=== PATIENT | female | born 1935 | race African-American/Black ===

== ENCOUNTER 2022-03-30 21:59 | Inpatient (IN) | payer MEDICARE ==
[2022-03-31] MEDS ORDERED: SODIUM CHLORIDE 0.9% 1000 ML 1,000 ML IV ONE (00:05)
[2022-03-31] MEDS ORDERED: PANTOPRAZOLE 40 MG INJ IV ONE (00:05)
[2022-03-31 00:47] LABS: Basophils % (Auto) 0.2 % (0.0-1.8); Eosinophils % (Auto) 0.4 % (0.0-4.3); Hematocrit 36.9 % (30.3-42.9); Lymphocytes # (Auto) 1.1 K/mm3 (1.2-5.4); Mean Corpuscular HGB Conc 33 % (30-34); Mean Corpuscular Volume 93 fl (79-97); Monocytes # (Auto) 0.7 K/mm3 (0.0-0.8); Monocytes % (Auto) 10.5 % (0.0-7.3); Platelet Count 188 K/mm3 (140-440); Red Blood Count 3.95 M/mm3 (3.65-5.03); Red Cell Distribution Width 13.6 % (13.2-15.2)
[2022-03-31 00:50] LABS: INR 0.83 (0.87-1.13)
--- NOTE | 2022-03-31 01:01 | XRay Report ---
CHEST 1 VIEW INDICATION / CLINICAL INFORMATION: GI Bleed. COMPARISON: None available. FINDINGS: SUPPORT DEVICES: None. HEART / MEDIASTINUM: Heart size is within normal limits. Mediastinal contour demonstrates no signific ant abnormality. LUNGS / PLEURA: Prominent hilar structures bilaterally. Faint interstitial markings noted bilaterally . Minimal blunting left costophrenic angle suggested. BONES: No significant osseous abnormality. ADDITIONAL FINDINGS: No significant additional findings. IMPRESSION: 1. No active cardiopulmonary disease. Mild prominence of the bilateral raymon may reflect technique. 2. Small left pleural effusion not excluded. Signer Name: Hansel Garcia II, MD Signed: 03/31/2022 12:57 AM Workstation Name: [id number]
[2022-03-31 01:10] LABS: Alanine Aminotransferase 19 units/L (7-56); Albumin 3.6 g/dL (3.9-5); BUN/Creatinine Ratio 36; Blood Urea Nitrogen 29 mg/dL (7-17); Calcium 8.9 mg/dL (8.4-10.2); Hemolysis Index 4
--- NOTE | 2022-03-31 03:03 | Cat Scan Report ---
CT ABDOMEN AND PELVIS WITH CONTRAST INDICATION / CLINICAL INFORMATION: pain. TECHNIQUE: Axial CT images were obtained through the abdomen and pelvis after IV contrast. All CT sc ans at this location are performed using CT dose reduction for ALARA by means of automated exposure c ontrol. COMPARISON: None available. FINDINGS: LOWER CHEST: Dependent atelectasis of the lower lobes. LIVER: No focal lesion. No acute findings. GALLBLADDER / BILE DUCTS: No significant abnormality. Biliary ducts grossly unremarkable. SPLEEN: No significant abnormality. PANCREAS: No significant abnormality. ADRENALS: No significant abnormality. KIDNEYS/URETERS: Bilateral renal cysts. The largest left renal cyst may have internal septation and m easures up to 3.5 cm. Additional calyceal cast lower pole calyceal system of the right kidney. This m easures up to 1.2 x 1.4 cm. No additional urolithiasis. STOMACH / DUODENUM / SMALL BOWEL: The stomach, duodenum, and small bowel demonstrate no significant a bnormality. No specific abnormality of the mesentery demonstrated. COLON: Diverticulosis without acute inflammation. APPENDIX: No significant abnormality. PERITONEUM: No free air or free fluid are present within the abdomen or pelvis. LYMPH NODES: No significant adenopathy. AORTA / ARTERIES: Moderate atherosclerotic calcification without acute abnormality. IVC / VEINS: No significant abnormality. URINARY BLADDER: No significant abnormality. REPRODUCTIVE ORGANS: No significant abnormality. SKELETAL SYSTEM: No acute findings. ADDITIONAL ABDOMINAL/PELVIC FINDINGS: None. IMPRESSION: 1. No imaging findings to suggest etiology of the provided symptoms. Nonacute findings as detailed. 2. Minimally complex left renal cyst. Likely benign Bosniak II renal cystic lesion(s) requiring no fo llow-up. Signer Name: Hansel Garcia II, MD Signed: 03/31/2022 2:58 AM Workstation Name: [id number]
[2022-03-31] MEDS ORDERED: ONDANSETRON 4 MG/2 ML INJ IV PRN (04:33)
[2022-03-31] MEDS ORDERED: MORPHINE 4 MG/1 ML INJ IV PRN (04:33)
[2022-03-31] MEDS ORDERED: ACETAMINOPHEN 325 MG TAB PO PRN (04:33)
[2022-03-31] MEDS ORDERED: MORPHINE 2 MG/1 ML INJ IV PRN (04:33)
--- NOTE | 2022-03-31 04:33 | Emergency Department Report ---
ED GI Bleed HPI - General Chief complaint: GI Bleed Stated complaint: BLOOD IN STOOL Time Seen by Provider: 03/30/22 23:32 Source: family, EMS Mode of arrival: Stretcher Limitations: No Limitations, Language Barrier - History of Present Illness Initial comments: blood in stool x6. not on blood thinners, no previous episodes , 6 times today , no vomitng blood no abdominal pain MD complaint: gross hematochezia -: hour(s) Improves with: none Worsens with: none Associated Symptoms: denies: denies other symptoms, abdominal pain, nausea, vomiting - Related Data Home Medications Medication Instructions Recorded Confirmed Last Taken Alendronate Sodium 70 mg PO 1XW 04/17/15 04/17/15 04/13/15 Aspirin BABY CHEW TAB 81 mg PO DAILY 04/17/15 04/17/15 04/16/15 Lisinopril 20 mg PO DAILY 04/17/15 04/17/15 04/16/15 Lovastatin 20 mg PO DAILY 04/17/15 04/17/15 04/16/15 Omeprazole 20 mg PO DAILY 04/17/15 04/17/15 04/16/15 Oxybutynin 5 mg PO DAILY 04/17/15 04/17/15 04/16/15 amLODIPine 10 mg PO DAILY 04/17/15 04/17/15 04/16/15 Allergies Allergy/AdvReac Type Severity Reaction Status Date / Time No Known Allergies Allergy Verified 04/17/15 09:43 ED Review of Systems ROS: Stated complaint: BLOOD IN STOOL Other details as noted in HPI Constitutional: denies: chills, fever Eyes: denies: eye pain, eye discharge, vision change ENT: denies: ear pain, throat pain Respiratory: denies: cough, shortness of breath, wheezing Cardiovascular: denies: chest pain, palpitations Endocrine: no symptoms reported Gastrointestinal: denies: abdominal pain, nausea, diarrhea Genitourinary: denies: urgency, dysuria, discharge Musculoskeletal: denies: back pain, joint swelling, arthralgia Skin: denies: rash, lesions Neurological: denies: headache, weakness, paresthesias Psychiatric: denies: anxiety, depression Hematological/Lymphatic: denies: easy bleeding, easy bruising ED Past Medical Hx - Past Medical History Hx Hypertension: Yes Hx GERD: Yes - Medications Home Medications: Home Medications Medication Instructions Recorded Confirmed Last Taken Type Alendronate Sodium 70 mg PO 1XW 04/17/15 04/17/15 04/13/15 History Aspirin BABY CHEW TAB 81 mg PO DAILY 04/17/15 04/17/15 04/16/15 History Lisinopril 20 mg PO DAILY 04/17/15 04/17/15 04/16/15 History Lovastatin 20 mg PO DAILY 04/17/15 04/17/15 04/16/15 History Omeprazole 20 mg PO DAILY 04/17/15 04/17/15 04/16/15 History Oxybutynin 5 mg PO DAILY 04/17/15 04/17/15 04/16/15 History amLODIPine 10 mg PO DAILY 04/17/15 04/17/15 04/16/15 History ED Physical Exam - General Limitations: Language Barrier General appearance: alert, cachectic - Head Head exam: Present: atraumatic, normocephalic - Eye Eye exam: Present: normal appearance - ENT ENT exam: Present: mucous membranes moist - Neck Neck exam: Present: normal inspection - Respiratory Respiratory exam: Present: normal lung sounds bilaterally. Absent: respiratory distress - Cardiovascular Cardiovascular Exam: Present: regular rate, normal rhythm. Absent: systolic murmur, diastolic murmur, rubs, gallop - GI/Abdominal GI/Abdominal exam: Present: soft, normal bowel sounds - Rectal Rectal exam: Present: heme (+) stool, bloody stool - Extremities Exam Extremities exam: Present: normal inspection - Back Exam Back exam: Present: normal inspection - Neurological Exam Neurological exam: Present: alert, oriented X3 - Psychiatric Psychiatric exam: Present: normal affect, normal mood - Skin Skin exam: Present: warm, dry, intact, normal color. Absent: rash ED Course Vital Signs 03/30/22 03/31/22 03/31/22 22:59 00:00 01:00 Temperature 98.5 F Pulse Rate 79 72 68 Respiratory 16 19 16 Rate Blood Pressure Blood Pressure 148/72 122/49 105/54 [Right] O2 Sat by Pulse 96 95 94 Oximetry 03/31/22 03/31/22 03/31/22 01:30 01:46 02:00 Temperature Pulse Rate 69 65 68 Respiratory 13 17 15 Rate Blood Pressure 115/43 111/51 123/60 Blood Pressure [Right] O2 Sat by Pulse 96 95 95 Oximetry 03/31/22 02:16 Temperature Pulse Rate 71 Respiratory 15 Rate Blood Pressure 146/79 Blood Pressure [Right] O2 Sat by Pulse 97 Oximetry ED Medical Decision Making - Lab Data Result diagrams: 03/31/22 00:17 03/31/22 00:17 - Radiology Data Radiology results: report reviewed, image reviewed - Medical Decision Making stable H.H , vss , bleeding noted typed and screed started on PPI, will admit for obs and gi consult Critical care attestation.: If time is entered above; I have spent that time in minutes in the direct care of this critically ill patient, excluding procedure time. ED Disposition Clinical Impression: GI bleed Disposition: ADMITTED INPATIENT Is pt being admited?: Yes Does the pt Need Aspirin: No Condition: Stable Referrals: MICHELLE TAYLOR MD [Primary Care Provider] - 3-5 Days
--- NOTE | 2022-03-31 04:42 | History and Physical Report ---
History of Present Illness Date of examination: 03/31/22 Date of admission: 03/31/2022 Chief complaint: Bloody Stool. History of present illness: 86-year-old Tajik female with known history of hypertension, GERD presenting to the emergency room today accompanied by daughter with complaints of bloody stool. She has had multiple episodes of bloody stool. She denies having any blood clots. Bloody stool was said to have started earlier today. She denies any abdominal pain, denies any diarrhea, no hematuria or dysuria, denies any dizziness, no chest pain or shortness of breath. She denies having similar episodes in the past. Patient denies using any [id number] nonsteroidal anti-inflammatory medication. However upon review of her medications, patient takes naproxen 500 mg twice a day for joint pain. Patient cannot recall ever having a colonoscopy. Review of her records shows she had EGD done in 2014 which did not reveal any significant abnormalities except for a small hiatal hernia. Work-up in the emergency room today, labs shows hemoglobin of 12 and hematocrit of 36.9. BUN of 29 creatinine of 0.8. Stool Hemoccult was grossly positive CT of the abdomen and pelvis did not reveal any acute findings. Patient is being admitted for GI bleed. He has been placed on IV fluid and Protonix drip. Past History Past Medical History: GERD, hypertension, hyperlipidemia, other (hiatal hernia) Medications and Allergies Allergies Allergy/AdvReac Type Severity Reaction Status Date / Time No Known Allergies Allergy Verified 04/17/15 09:43 Home Medications Medication Instructions Recorded Confirmed Last Taken Type Alendronate Sodium 70 mg PO 1XW 04/17/15 03/31/22 04/13/15 History Aspirin BABY CHEW TAB 81 mg PO DAILY 04/17/15 03/31/22 04/16/15 History Lisinopril 20 mg PO DAILY 04/17/15 03/31/22 04/16/15 History Lovastatin 20 mg PO DAILY 04/17/15 03/31/22 04/16/15 History Omeprazole 20 mg PO DAILY 04/17/15 03/31/22 1 Day Ago History ~03/30/22 Oxybutynin 5 mg PO DAILY 04/17/15 03/31/22 1 Day Ago History ~03/30/22 amLODIPine 2.5 mg PO DAILY 04/17/15 03/31/22 1 Day Ago History ~03/30/22 Active Meds: Active Medications Acetaminophen (Acetaminophen 325 Mg Tab) 650 mg PO Q4H PRN PRN Reason: Pain MILD(1-3)/Fever >100.5/MEDEL Sodium Chloride (Nacl 0.9% 1000 Ml) 1,000 mls @ 125 mls/hr IV DIRECT JOEL Morphine Sulfate (Morphine 2 Mg/1 Ml Inj) 2 mg IV Q4H PRN PRN Reason: Pain, Moderate (4-6) Morphine Sulfate (Morphine 4 Mg/1 Ml Inj) 4 mg IV Q4H PRN PRN Reason: Pain , Severe (7-10) Ondansetron HCl (Ondansetron 4 Mg/2 Ml Inj) 4 mg IV Q8H PRN PRN Reason: Nausea And Vomiting Sodium Chloride (Sodium Chloride 0.9% 10 Ml Flush Syringe) 10 ml IV BID JOEL Sodium Chloride (Sodium Chloride 0.9% 10 Ml Flush Syringe) 10 ml IV PRN PRN PRN Reason: LINE FLUSH Review of Systems Constitutional: no fever, no chills Ears, nose, mouth and throat: no nasal congestion, no sore throat Cardiovascular: no chest pain, no palpitations Respiratory: no cough, no shortness of breath Gastrointestinal: BRBPR, no nausea, no vomiting, no diarrhea Genitourinary Female: no pelvic pain, no flank pain, no dysuria, no hematuria Musculoskeletal: no neck pain, no low back pain Integumentary: no rash, no pruritis Neurological: no headaches, no confusion Psychiatric: no anxiety, no depression Endocrine: no polyphagia, no polydipsia, no polyuria, no nocturia Exam - Constitutional Vitals: Temp Pulse Resp BP Pulse Ox 98.5 F 71 15 146/79 97 03/30/22 22:59 03/31/22 02:16 03/31/22 02:16 03/31/22 02:16 03/31/22 02:16 General appearance: Present: no acute distress, well-nourished - EENT Eyes: Present: PERRL, EOM intact, irregular pupil. Absent: scleral icterus ENT: hearing intact, clear oral mucosa, dentition normal - Neck Neck: Present: supple, normal ROM - Respiratory Respiratory effort: normal Respiratory: bilateral: CTA - Cardiovascular Rhythm: regular Heart Sounds: Present: S1 & S2. Absent: systolic murmur, diastolic murmur, rub, click - Extremities Extremities: no ischemia, pulses intact, pulses symmetrical, No edema, normal temperature, normal color, Full ROM Peripheral Pulses: within normal limits - Abdominal General gastrointestinal: Present: soft, non-tender, non-distended, normal bowel sounds. Absent: mass - Integumentary Integumentary: Present: clear, warm, dry, normal turgor. Absent: rash - Musculoskeletal Musculoskeletal: strength equal bilaterally - Psychiatric Psychiatric: appropriate mood/affect, intact judgment & insight, memory intact, cooperative - Neurologic Neurologic: CNII-XII intact, no focal deficits, moves all extremities Results - Labs CBC & Chem 7: 03/31/22 00:17 03/31/22 00:17 Labs: Abnormal lab results 03/31/22 03/31/22 03/31/22 Range/Units 00:17 00:17 00:17 [place] % (Auto) 10.5 H (0.0-7.3) % Lymph # (Auto) 1.1 L (1.2-5.4) K/mm3 Seg Neutrophils % 71.9 H (40.0-70.0) % INR 0.83 L (0.87-1.13) Chloride 107.5 H (98-107) mmol/L BUN 29 H (7-17) mg/dL Total Protein 5.3 L (6.3-8.2) g/dL Albumin 3.6 L (3.9-5) g/dL Assessment and Plan Assessment: 1.GI Bleed 2.H/O Gerd/ hiatal hernia 3.Hypertension- blood pressure stable. 4.Dehydration Plan: 1. Patient admitted and placed on IV fluid and Protonix drip. 2. We will monitor CBC closely. We will type and screen. 3. Consult placed to gastroenterology for further evaluation and recommendation. 4. Patient meanwhile kept NPO. DVT Prophylaxis:Sequential Compression Device. Code Status: Full Code
[2022-03-31] MEDS: SODIUM CHLORIDE 0.9% 1000 ML 1,000 ML IV SCH (06:32)
--- NOTE | 2022-03-31 07:49 | Gastroenterology Consultation ---
History of Present Illness - Reason for Consult Consult date: 03/31/22 Rectal bleeding Requesting physician: BE REAL - History of Present Illness Patient called a cousin on the phone who interpreted, I offered telephone Lebanese per diem interpreter, patient declined Patient reports yesterday had to have a bowel movement normal stool came out followed by some blood. Patient then had multiple, approximately 7-11, bowel movements where she felt the urge to defecate and nothing but blood came out. She reports the blood was dark red initially was a lot and then started to diminish in terms of the quantity. Family member present show me a picture of the stool towards the end it looked black, the when I spoke to the nurse she said patient had a little bit of stool still present when she came up to the floor which was dark red and not black. They were very concerned even though the amount of bleeding was declining significantly and therefore called ambula magdalenae and came to the emergency room Spoke to the nurse and confirm with the patient patient has not had any more bowel movement since coming up to the floor Patient denies any abdominal pain or prior incidents or episodes of bleeding like this She denies any significant constipation Denies history of peptic ulcer disease Reports has not had EGD or colonoscopy in many years, close to 10 years She reports she does take NSAIDs on a daily basis Does not feel weak or lightheaded currently Allergies no known drug allergies Surgical history upper endoscopy and colonoscopy Family history mother and father , no known history of gastric malignancy Social history denies tobacco use EGD Dr Flower 04/2015 Impressions: Small sliding hiatus hernia. No definite esophageal stricture. Status post empiric dilation. Esophageal dysmotility is likely in this setting. Obtained/updated/reviewed patient's current medications Past History Past Medical History: arthritis, GERD, hypertension, hyperlipidemia, other (hiatal hernia) Medications and Allergies Allergies Allergy/AdvReac Type Severity Reaction Status Date / Time No Known Allergies Allergy Verified 04/17/15 09:43 Home Medications Medication Instructions Recorded Confirmed Last Taken Type Alendronate Sodium 70 mg PO 1XW 04/17/15 03/31/22 04/13/15 History Aspirin BABY CHEW TAB 81 mg PO DAILY 04/17/15 03/31/22 04/16/15 History Lisinopril 20 mg PO DAILY 04/17/15 03/31/22 04/16/15 History Lovastatin 20 mg PO DAILY 04/17/15 03/31/22 04/16/15 History Omeprazole 20 mg PO DAILY 04/17/15 03/31/22 1 Day Ago History ~03/30/22 Oxybutynin 5 mg PO DAILY 04/17/15 03/31/22 1 Day Ago History ~03/30/22 amLODIPine 2.5 mg PO DAILY 04/17/15 03/31/22 1 Day Ago History ~03/30/22 Naproxen 500 mg PO BID 03/31/22 03/31/22 03/30/22 History Active Meds: Active Medications Acetaminophen (Acetaminophen 325 Mg Tab) 650 mg PO Q4H PRN PRN Reason: Pain MILD(1-3)/Fever >100.5/MEDEL Sodium Chloride (Nacl 0.9% 1000 Ml) 1,000 mls @ 125 mls/hr IV DIRECT JOEL Last Admin: 03/31/22 06:32 Dose: 125 mls/hr Pantoprazole Sodium 80 mg/ (Sodium Chloride) 100 mls @ 10 mls/hr IV DIRECT JOEL Morphine Sulfate (Morphine 2 Mg/1 Ml Inj) 2 mg IV Q4H PRN PRN Reason: Pain, Moderate (4-6) Morphine Sulfate (Morphine 4 Mg/1 Ml Inj) 4 mg IV Q4H PRN PRN Reason: Pain , Severe (7-10) Ondansetron HCl (Ondansetron 4 Mg/2 Ml Inj) 4 mg IV Q8H PRN PRN Reason: Nausea And Vomiting Sodium Chloride (Sodium Chloride 0.9% 10 Ml Flush Syringe) 10 ml IV BID JOEL Sodium Chloride (Sodium Chloride 0.9% 10 Ml Flush Syringe) 10 ml IV PRN PRN PRN Reason: LINE FLUSH Review of Systems - Review of Systems All systems: negative (10 Systems reviewed and negative except as mentioned above in the history of present illness) Exam - Constitutional Vital Signs: Temp Pulse Resp BP Pulse Ox 98.2 F 64 16 104/45 95 03/31/22 06:05 03/31/22 06:05 03/31/22 06:05 03/31/22 06:05 03/31/22 06:05 General appearance: no acute distress - EENT Eyes: EOM intact - Neck Neck: supple - Respiratory Respiratory effort: normal - Cardiovascular Rhythm: regular - Gastrointestinal General gastrointestinal: Present: soft, normal bowel sounds, other (Minimal tenderness palpation periumbilical area) - Integumentary Integumentary: Present: dry - Musculoskeletal Musculoskeletal: normal - Neurologic Neurological: alert and oriented x3 - Psychiatric Psychiatric: appropriate mood/affect - Labs CBC & Chem 7: 03/31/22 00:17 03/31/22 00:17 Lab Results: Laboratory Results - last 24 hr 03/31/22 03/31/22 03/31/22 00:17 00:17 00:17 WBC 6.6 RBC 3.95 Hgb 12.0 Hct 36.9 MCV 93 MCH 30 MCHC 33 RDW 13.6 Plt Count 188 Lymph % (Auto) 17.0 [place] % (Auto) 10.5 H Eos % (Auto) 0.4 Baso % (Auto) 0.2 Lymph # (Auto) 1.1 L [place] # (Auto) 0.7 Eos # (Auto) 0.0 Baso # (Auto) 0.0 Seg Neutrophils % 71.9 H Seg Neutrophils # 4.7 PT 12.5 INR 0.83 L Sodium 142 Potassium 4.7 Chloride 107.5 H Carbon Dioxide 24 Anion Gap 15 BUN 29 H Creatinine 0.8 Estimated GFR > 60 BUN/Creatinine Ratio 36 Glucose 92 Lactic Acid Calcium 8.9 Magnesium 2.10 Total Bilirubin 0.20 AST 24 ALT 19 Alkaline Phosphatase 69 Total Protein 5.3 L Albumin 3.6 L Albumin/Globulin Ratio 2.1 Lipase 28 03/31/22 00:17 WBC RBC Hgb Hct MCV MCH MCHC RDW Plt Count Lymph % (Auto) [place] % (Auto) Eos % (Auto) Baso % (Auto) Lymph # (Auto) [place] # (Auto) Eos # (Auto) Baso # (Auto) Seg Neutrophils % Seg Neutrophils # PT INR Sodium Potassium Chloride Carbon Dioxide Anion Gap BUN Creatinine Estimated GFR BUN/Creatinine Ratio Glucose Lactic Acid 0.90 Calcium Magnesium Total Bilirubin AST ALT Alkaline Phosphatase Total Protein Albumin Albumin/Globulin Ratio Lipase Assessment and Plan Given patient's hemodynamic stability more consistent with a lower GI bleed than upper GI bleed. However, patient did have very dark almost melanotic appearing stool towards the end, does take NSAIDs on a daily basis and therefore upper GI source is also in the differential diagnosis Therefore, given amount of blood being described and declining hemoglobin would recommend EGD and colonoscopy. We will continue PPI, clear liquid diet today, GoLytely tonight, n.p.o. past midnight for EGD and colonoscopy tomorrow - Patient Problems (1) GI bleed Current Visit: Yes Status: Acute (2) Hematochezia Current Visit: Yes Status: Acute
--- NOTE | 2022-03-31 11:39 | Event Note ---
Date: 03/31/22 Patient is Kyrgyz speaking and seen at bedside with cna/family friend. Patient offered for translation via blue phone but preferred to use her visitor as a project reservoir engineer. She was updated about current care plan. She has not had any bloody bowel movements since making it to the floor. Aware of n.p.o. status and clear liquid diet. Plan for EGD/colonoscopy tomorrow.
[2022-03-31] MEDS ORDERED: NON-FORMULARY EACH (Lisinopril 20 MG) PO SCH (15:45)
[2022-03-31] MEDS: PANTOPRAZOLE 80 MG in SODIUM CHLORIDE 0.9% 100 ML IV SCH ×2 (15:51→23:30)
[2022-03-31] MEDS ORDERED: POLYETHYLENE GLYCOL/ELECT SOLN 4000 ML PO NR (16:00)
--- NOTE | 2022-03-31 17:41 | Electrocardiograph Report ---
[facility] Test Date: 2022-03-31 Test Time: 08:31:51 Pat Name: ANANYA DORSEY Department: Room: A389 1 Gender: F Pnp: HERVE : 1935 Requested By: SUKI HESTER Order Number: [id number] Reading MD: Divya Mo Measurements Intervals Matthews Rate: 70 P: 52 UT: 146 QRS: 23 QRSD: 71 T: 12 QT: 420 QTc: 454 Interpretive Statements Sinus rhythm No previous ECG available for comparison Electronically Signed On 03-31-2022 17:41:07 EDT by Divya Mo
[2022-04-01] MEDS: SODIUM CHLORIDE 0.9% 1000 ML 1,000 ML IV SCH (04:37)
[2022-04-01 05:48] LABS: Basophils % (Auto) 0.3 % (0.0-1.8); Eosinophils # (Auto) 0.1 K/mm3 (0.0-0.4); Eosinophils % (Auto) 1.1 % (0.0-4.3); Hematocrit 27.4 % (30.3-42.9); Lymphocytes # (Auto) 1.2 K/mm3 (1.2-5.4); Lymphocytes % (Auto) 16.3 % (13.4-35.0); Mean Corpuscular HGB Conc 33 % (30-34); Mean Corpuscular Volume 94 fl (79-97); Monocytes # (Auto) 0.7 K/mm3 (0.0-0.8); Monocytes % (Auto) 9.7 % (0.0-7.3); Platelet Count 169 K/mm3 (140-440); Red Blood Count 2.92 M/mm3 (3.65-5.03); Red Cell Distribution Width 13.9 % (13.2-15.2)
[2022-04-01 06:07] LABS: BUN/Creatinine Ratio 11; Blood Urea Nitrogen 9 mg/dL (7-17); Calcium 7.8 mg/dL (8.4-10.2); Hemolysis Index 4
[2022-04-01] MEDS ORDERED: WATER FOR IRRIG STERILE 1,000 ML BOTTLE ONE (07:24)
[2022-04-01] MEDS ORDERED: WATER FOR IRRIG STERILE 250 ML BOTTLE IR ONE (07:24)
[2022-04-01] MEDS ORDERED: EPINEPHrine 1 MG/10 ML SYRINGE ONE (07:24)
--- NOTE | 2022-04-01 07:36 | Anesthesia Consultation ---
Anesthesia Consult and Med Hx Date of service: 04/01/22 - Airway Anesthetic Teeth Evaluation: Chipped, Edentulous (upper) Mental/Hyoid Distance: Inadequate Mallampati Class: Class III Intubation Access Assessment: Possibly Difficult - Pulmonary Exam CTA: Yes - Cardiac Exam Cardiac Exam: RRR (systolic murmur) - Pre-Operative Health Status ASA Pre-Surgery Classification: ASA3 Proposed Anesthetic Plan: MAC - Pulmonary Hx Respiratory Symptoms: No - Cardiovascular System Hx Hypertension: Yes - Central Nervous System CVA: No - Endocrine Hx Renal Disease: No Hx Liver Disease: No Hx Insulin Dependent Diabetes: No Hx Non-Insulin Dependent Diabetes: No Hx Thyroid Disease: No - Hematic Hx Anemia: Yes (2/2 GI Bleed) - Additional Comments Anesthesia Medical History Comments: Family member at bedside for New Zealander translation.
--- NOTE | 2022-04-01 07:38 | Anesthesia Day of Surgery ---
Anesthesia Day of Surgery - Day of Surgery Patient Examined: Yes Patient H&P Reviewed: Yes Patient is NPO: Yes
[2022-04-01] MEDS ORDERED: LIDOCAINE MPF (2%) 20 MG/1 ML VIAL 5 ML ONE (07:40)
[2022-04-01] MEDS ORDERED: propofoL 200 MG/20 ML VIAL IV ONE (07:40)
--- NOTE | 2022-04-01 08:17 | Operative Report ---
Operative Report Operative Report: DOS: 04/01/22 SURGEON: Terry Good MD EGD with biopsy REPORT PREOPERATIVE DIAGNOSIS and POSTOPERATIVE DIAGNOSIS: GI bleed ESTIMATED BLOOD LOSS: minimal DESCRIPTION OF PROCEDURE: A high-resolution peds colonoscope was passed through the oropharynx, esophagus, stomach, and second portion of duodenum. The scope was carefully withdrawn. Retroflexion was performed in the stomach. At the end of the procedure, the scope was cleaned using normal technique. Vital signs monitored continuously throughout. SEDATION: Provided by Anesthesiology Services. COMPLICATIONS: None. FINDINGS: No gross lesions in the duodenum Moderate gastritis with 2 mild superficial ulcerations of the gastric antrum. Biopsies were taken to rule out H. Pylori infection. A total of 5 biopsies were taken, 2 from the antrum, 1 from the incisura, 2 from the body. Z-line slightly irregular at 38 cm in the incisors Remainder of exam unremarkable RECOMMENDATIONS: May switch PPI to pantoprazole 40 mg once daily by mouth Follow-up biopsy results No more clinical bleeding, source of bleed most likely from mild proximal colonic diverticular bleed. We will start patient on diet. As long as she remains well can be discharged with outpatient follow-up Repeat colonoscopy not indicated due to patient's age
--- NOTE | 2022-04-01 08:18 | Operative Report ---
Operative Report Operative Report: DOS: 04/01/22 SURGEON: Terry Good MD COLONOSCOPY WITH COLD FORCEPS POLYPECTOMY REPORT PREOPERATIVE AND POSTOPERATIVE DIAGNOSIS: GI bleed DESCRIPTION OF PROCEDURE: The peds colonoscope was passed to the terminal ileum as identified by the ileal tissue. Scope was carefully withdrawn. Retroflexion was performed in the rectum. At the end of procedure, the scope was cleaned using normal technique. Vital signs monitored continuously throughout. SEDATION: Provided by Anesthesiology Services. Quality of the prep was adequate. COMPLICATIONS: None. ESTIMATED BLOOD LOSS: minimal FINDINGS: Normal terminal ileum No blood was present in the entire GI tract Scattered diverticulosis throughout the entire colon 3 mm sessile polyp in the ascending colon removed by cold forceps polypectomy Remainder of exam unremarkable RECOMMENDATIONS: May switch PPI to pantoprazole 40 mg once daily by mouth Follow-up biopsy results No more clinical bleeding, source of bleed most likely from mild proximal colonic diverticular bleed. We will start patient on diet. As long as she remains well can be discharged with outpatient follow-up Repeat colonoscopy not indicated due to patient's age
--- NOTE | 2022-04-01 08:19 | Event Note ---
Date: 04/01/22 GI will sign off, please call us back if we can be of any further assistance
[2022-04-01 09:37] VITALS: BP 126/45
--- NOTE | 2022-04-01 09:53 | Discharge Summary ---
Providers - Providers Date of Admission: 03/31/22 04:33 Date of discharge: 04/01/22 Attending physician: KHRIS SALVADOR MD 03/31/22 04:33 Consult to Physician [CONS] Routine Comment: Consulting Provider: HALLE HUSSEIN Physician Instructions: Reason For Exam: GI Bleed Primary care physician: MICHELLE TAYLOR Hospitalization Reason for admission: GI bleed Condition: Stable Hospital course: 86-year-old [facility] female with history of hypertension and GERD who presented with complaints of multiple bloody stools. She is admitted for GI bleed. Hemoglobin was stable and patient did not receive any transfusions. EGD and colonoscopy were performed which showed diverticulosis and 1 polyp that was biopsied. Once clinically stable, patient was discharged home with family. Disposition: 01 HOME / SELF CARE / HOMELESS Final Discharge Diagnosis (Prints w/discharge instructions): GI bleed. colon polyp. Diverticulosis. Hypertension. GERD Time spent for discharge: 45 minutes Core Measure Documentation - Palliative Care Palliative Care/ Comfort Measures: Not Applicable - Core Measures Any of the following diagnoses?: none Exam - Physical Exam Narrative exam: GENERAL: Well-developed well-nourished. In no acute distress. HEENT: Poor dentition. NECK: Supple. CHEST/LUNGS: CTAB on room air HEART/CARDIOVASCULAR: RRR. No murmur, rubs or gallops appreciated. ABDOMEN: +BS. NT/ND. SKIN: No rashes noted. NEURO: No focal motor deficit. Follows all commands. MUSCULOSKELETAL: No joint effusion EXTREMITIES: No cyanosis, clubbing or edema. PSYCH: Cooperative. - Constitutional Vitals: Temp Pulse Resp BP Pulse Ox 98.2 F 80 16 126/45 96 04/01/22 08:11 04/01/22 08:31 04/01/22 08:31 04/01/22 08:31 04/01/22 08:31 Plan Care Plan Goals: Please follow up with your primary care provider. Please start taking all medications as they are prescribed to you. Please follow up in Dr. Garcia's office in the next 2 weeks. Follow up with: MICHELLE TAYLOR MD [Primary Care Provider] - 3-5 Days GIA GARCIA MD [Staff Physician] - 14 Days Forms: Accompanied Note Prescriptions: Pantoprazole [Protonix TAB] 40 mg PO QDAY 30 Days #30 tablet
[2022-04-01] MEDS ORDERED: LISINOPRIL 20 MG TAB PO SCH (10:00)
[2022-04-01] MEDS ORDERED: OXYBUTYNIN 5 MG PO SCH (10:00)
[2022-04-01] MEDS ORDERED: OXYBUTYNIN 5 MG TAB PO SCH (10:00)
--- NOTE | 2022-04-01 11:33 | Post Anesthesia Evaluation ---
- Post Anesthesia Evaluation Patient Participated: Yes Airway Patent: Yes Stable Respiratory Function: Yes Nausea/Vomiting: No Temp > 96.8F: Yes Pain Manageable: Yes Adequeate Hydration: Yes Anesthesia Complications: No
[2022-04-02] MEDS ORDERED: PANTOPRAZOLE 40 MG TAB PO SCH (07:30)
--- NOTE | 2022-04-02 09:45 | Electrocardiograph Report ---
[facility] Test Date: 2022-03-31 Test Time: 01:59:51 Pat Name: ANANYA DORSEY Department: Room: A389 1 Gender: F Artist Color Separation: BO : 1935 Requested By: SUKI HESTER Order Number: [id number] Reading MD: Naun Hammond Measurements Intervals [place] Rate: 67 P: 60 WI: 161 QRS: 39 QRSD: 75 T: 25 QT: 418 QTc: 443 Interpretive Statements Sinus rhythm NSST'S No previous ECG available for comparison Electronically Signed On 04-02-2022 9:45:30 EDT by Naun Hammond
== END 2022-04-01 12:00 | disposition home or self-care (01) | DRG 379 ==
LOC: ED 21:59 → 3A 03-31 04:33
PROVIDERS: ADMIT Internal Medicine Geriatric Medicine; ATTEND Student in an Organized Health Care Education/Training Program
PROC: 0DB68ZX Excision of Stomach, Via Natural or Artificial Opening Endoscopic, Diagnostic (ICD-10-PCS; principal; 2022-04-01)
PROC: 0DBK8ZZ Excision of Ascending Colon, Via Natural or Artificial Opening Endoscopic (ICD-10-PCS; 2022-04-01)
DX: K57.31 Diverticulosis of large intestine without perforation or abscess with bleeding (principal); K63.5 Polyp of colon; K25.4 Chronic or unspecified gastric ulcer with hemorrhage; K29.71 Gastritis, unspecified, with bleeding; I10 Essential (primary) hypertension; K21.9 Gastro-esophageal reflux disease without esophagitis; E78.5 Hyperlipidemia, unspecified; E86.0 Dehydration; K44.9 Diaphragmatic hernia without obstruction or gangrene
CPT/HCPCS: 36415; 71045; 74177; 80048; 80053; 82140; 82270; 83690; 83735; 85025; 85610; 86850; 86900; 86901; 88305; 88342; 93005; 96374; 99285; G0378; C9113; J0171; J2704; J7030; Q9967